=== PATIENT | male | born 1990 | race Caucasian/White ===

== ENCOUNTER 2017-05-24 19:12 | Inpatient (IN) | payer MEDICAID ==
[~2017-05-24] VITALS: Ht 182.9 cm; Wt 81.6 kg
--- NOTE | 2017-05-24 19:22 | NUR ---
PT AMBULATORY TO ER ER BED. C/O SUDDEN ONSET R EYE VISUAL LOSS THIS AFTERNOON WHILE AT CLASS. ALSO C/O R SIDED WEAKNESS AND PARASTHESIA. 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 PLACED ON MONITOR. STABLE VITALS NOTED. AWAITING MD BEDOYA.
--- NOTE | 2017-05-24 19:37 | NUR ---
DR FOWLER AT BEDSIDE FOR EVAL.
[2017-05-24 19:59] LABS: BASOPHILS % (AUTO) 0.3 % (0.0-2.0); EOSINOPHILS % (AUTO) 0.6 % (0.0-6.0); HEMATOCRIT 47 % (39-51); HEMOGLOBIN 16.1 g/dL (13.5-17.5); LYMPHOCYTES # (AUTO) 1.6 /CMM (0.8-4.8); LYMPHOCYTES % (AUTO) 22.4 % (20.0-44.0); MEAN CORPUSCULAR HEMOGLOBIN 31 PG (26.0-33.0); MEAN CORPUSCULAR HGB CONC 34 g/dl (31.0-36.0); MEAN CORPUSCULAR VOLUME 90 fL (80-96); MONOCYTES # (AUTO) 0.6 /CMM (0.1-1.30); MONOCYTES % (AUTO) 8.6 % (2.0-12.0); NEUTROPHILS # (AUTO) 4.7 /CMM (1.8-8.9); NEUTROPHILS % (AUTO) 68.1 % (43.0-81.0); PLATELET COUNT (AUTO) 266 /CMM (150-450); RDW COEFFICIENT OF VARIATION 12.2 (11.5-15.0); RED BLOOD CELL COUNT(AUTO) 5.25 MIL/uL (4.5-6.0); WHITE BLOOD COUNT (AUTO) 6.9 K/uL (4.3-11.0)
[2017-05-24 20:08] LABS: CREATININE 1.1 mg/dL (0.6-1.3); POTASSIUM 3.7 mmol/L (3.5-5.1)
[2017-05-24 20:14] LABS: INR 1.02 (0.87-1.13); PROTHROMBIN TIME 10.6 SECS (9.5-12.7)
--- NOTE | 2017-05-24 20:45 | NUR ---
REPORT GIVEN TO DEVON. PT AWAITING TRANSFER TO FLOOR.
[2017-05-24 21:30] VITALS: BP 139/78
--- NOTE | 2017-05-24 21:30 | NUR ---
MICROCOMPUTER TECHNICIAN INITIAL NOTES PT ARRIVED FROM ER VIA GURNEY, ABLE TO AMBULATE TO THE BED WITH A STEADY GAIT. NO SIGNS OF SOB OR DISTRESS, BREATHING EVENLY AND UNLABORED ON ROOM AIR. STROKE ASSESSMENT WAS PERFORMED AND DOCUMENTED. NURSING SWALLOW EVAL WAS COMPLETED, PT ATE WHAT FAMILY BROUGHT. ORDERS GIVEN TO BE CARRIED OUT. WILL CONTINUE TO MONITOR PT
[2017-05-24 23:48] LABS: ALBUMIN 4.2 g/dL (3.4-5.0); BILIRUBIN,DIRECT 0.1 mg/dL (0.0-0.2); BILIRUBIN,TOTAL 0.4 mg/dL (0.2-1.0); TOTAL PROTEIN, SERUM 7.7 g/dL (6.4-8.2)
[2017-05-24 23:49] LABS: THYROID STIMULATING HORMONE 1.193 uIU/mL (0.358-3.74)
[2017-05-25] VITALS: BP 139/69
[2017-05-25 04:00] VITALS: BP 113/65
[2017-05-25 04:26] LABS: BASOPHILS % (AUTO) 0.2 % (0.0-2.0); EOSINOPHILS # (AUTO) 0.1 /CMM (0.0-0.7); EOSINOPHILS % (AUTO) 0.8 % (0.0-6.0); HEMATOCRIT 43 % (39-51); HEMOGLOBIN 14.5 g/dL (13.5-17.5); LYMPHOCYTES # (AUTO) 2.8 /CMM (0.8-4.8); LYMPHOCYTES % (AUTO) 40.7 % (20.0-44.0); MEAN CORPUSCULAR HEMOGLOBIN 31 PG (26.0-33.0); MEAN CORPUSCULAR HGB CONC 34 g/dl (31.0-36.0); MEAN CORPUSCULAR VOLUME 90 fL (80-96); MONOCYTES # (AUTO) 0.7 /CMM (0.1-1.30); MONOCYTES % (AUTO) 10.4 % (2.0-12.0); NEUTROPHILS # (AUTO) 3.2 /CMM (1.8-8.9); NEUTROPHILS % (AUTO) 47.9 % (43.0-81.0); PLATELET COUNT (AUTO) 244 /CMM (150-450); RDW COEFFICIENT OF VARIATION 13.2 (11.5-15.0); RED BLOOD CELL COUNT(AUTO) 4.76 MIL/uL (4.5-6.0); WHITE BLOOD COUNT (AUTO) 6.8 K/uL (4.3-11.0)
[2017-05-25 04:45] LABS: INR 0.97 (0.87-1.13); PROTHROMBIN TIME 10.4 SECS (9.5-12.7)
[2017-05-25 04:47] LABS: ALBUMIN 3.5 g/dL (3.4-5.0); BILIRUBIN,TOTAL 0.3 mg/dL (0.2-1.0); CALCIUM, SERUM 9.3 mg/dL (8.5-10.1); CREATININE 0.9 mg/dL (0.6-1.3); POTASSIUM 3.8 mmol/L (3.5-5.1); TOTAL PROTEIN, SERUM 6.6 g/dL (6.4-8.2)
--- NOTE | 2017-05-25 07:35 | NUR ---
ANALYTICS ANALYST CLOSING NOTES PT IS IN BED A/O X4. NO SIGNS OF SOB OR DISTRESS. IV ACCESS INTACT AND PATENT, INFUSING WITH NS. NO ACUTE CHANGES THROUGHOUT MY SHIFT. BED IS IN LOW AND LOCKED POSITION, CALL LIGHT WITHIN REACH. WILL ENDORSE TO DAY SHIFT
--- NOTE | 2017-05-25 07:40 | NUR ---
FIRE LOSS PREVENTION ENGINEER NOTES PATIENT ALERT AND ORIENTED, DENIES PAIN OR HEADACHE AT THIS TIME, STATED HE FEELS BETTER, BREATHING EVEN AND UNLABORED, NO SOB, PIV PATENT AND FLUSHES WELL, IVF INFUSING AND TOLERATING WELL, NEED TO COLLECT URINE SAMPLE, NEEDS ATTENDED AND MET, CALL LIGHT WITHIN REACH, WILL CONTINUE TO MONITOR.
[2017-05-25 08:24] VITALS: BP 124/75
--- NOTE | 2017-05-25 09:30 | NUR ---
MARITIME OFFICER NOTES PATIENT SEEN BY DR. JEREZ AND DR. URIAS, RECEIVED NEW ORDERS FROM DR. JEREZ FOR MRI, MRA AND EEG. ORDER NOTED AND CARRIED OUT.
--- NOTE | 2017-05-25 10:00 | NUR ---
IMPLEMENTATION CONSULTANT NOTES PATIENT AWARE OF PROCEDURES, PATIENT BROUGHT DOWN TO RADIOLOGY FOR MRI AND MRA.
[2017-05-25 11:15] LABS: APPEARANCE,URINE CLEAR (CLEAR); BILIRUBIN,URINE NEGATIVE (NEGATIVE); BLOOD, URINE NEGATIVE Ery/uL (NEGATIVE); COLOR,URINE YELLOW (YELLOW); KETONES,URINE NEGATIVE (NEGATIVE); LEUKOCYTE ESTERASE ,URINE NEGATIVE (NEGATIVE); NITRITE, URINE NEGATIVE (NEGATIVE); PROTEIN,URINE NEGATIVE (NEGATIVE); UGLUCOSE NEGATIVE (NEGATIVE)
[2017-05-25 11:46] LABS: BACTERIA,URINE None seen /HPF (None Seen); RBC,URINE NONE SEEN /HPF (0-2); SQUAMOUS EPITHELIAL CELL,UR Few /HPF (None Seen); WBC,URINE 0-2 /HPF (0-3)
--- NOTE | 2017-05-25 12:00 | NUR ---
VERTICAL MILL OPERATOR NOTES PATIENT CAME BACK FROM MRA AND MRI, PLACED A CALL TO RADIOLOGY, VERIFIED WHAT TIME IS EEG GOING TO BE DONE, PER X-RAY TECH, IT WILL BE DONE IN THE AFTERNOON AFTER 5PM.
--- NOTE | 2017-05-25 15:00 | NUR ---
RN MS NOTES DR. URIAS AWARE OF MRI AND MRA RESULT, INFORMED HIM THAT EEG IS STILL PENDING.
[2017-05-25 16:00] VITALS: BP 120/81
--- NOTE | 2017-05-25 18:29 | NUR ---
RN MS NOTES PATIENT STILL WAITING FOR EEG TO BE DONE, INFORMED PATIENT HE HAS A DISCHARGE ORDER, IF CLEARED BY DR. JEREZ PATIENT CAN BE DISCHARGED HOME. F/U WITH RADIOLOGY AND STATED THE TECH WILL BE HERE.
--- NOTE | 2017-05-25 19:18 | NUR ---
MISSILE INSPECTOR PREFLIGHT NOTES EEG COMPLETED AT 1520, WAITING FOR RESULT AND DR. JEREZ'S CLEARANCE FOR DISCHARGE.
--- NOTE | 2017-05-25 19:45 | NUR ---
MS RN NOTE RECEIVED PATIENT FROM DAY SHIFT, PATIENT IS ALERT AND ORIENTEDX4, RESTING IN BED COMFORTABLY, STILL WAITING FOR DR. JEREZ'S EEG READING AND CLEARANCE FOR DC, INFORMED THE PATIENT WELL. IV ON RIGHT AC IS PATENT AND INTACT. SRX2, BED IN LOWP OSITION, CALL LIGHT WITHIN REACH, WILL CONTINUE TO MONITOR PATIENT.
[2017-05-25 19:58] VITALS: BP 121/70
--- NOTE | 2017-05-26 06:49 | NUR ---
MS RN NOTE NO ACUTE DISTRESS NOTED THROUGHOUT THE SHIFT, ALL DUE MEDS GIVEN. PATIENT IS RESTING IN BED COMFORTABLY. WILL ENDORSE TO DAY SHIFT NURSE FOR ARIANNA.
--- NOTE | 2017-05-26 07:23 | NUR ---
MS/RN OPENING NOTES PATIENT RECEIVED ASLEEP IN BED, EASILY AWAKENS. A/O X4, VERBALLY RESPONSIVE, DENIES PAIN OR DISCOMFORTS AT THIS TIME. ON ROOM AIR, BREATHING EVEN AND UNLABORED. IV ACCESS ON RAC INTACT, PATENT AND FLUSHES WELL, IVF OF NS @ 75ML/HR INFUSING WELL. CALL LIGHT WITHIN REACH. WILL CONTINUE TO MONITOR PT ACCORDINGLY
[2017-05-26 08:00] VITALS: BP 112/51
[2017-05-26 08:10] LABS: HOMOCYSTEINE, PLASMA 9.6 umol/L (0.0-15.0)
--- NOTE | 2017-05-26 11:03 | NUR ---
RN NOTES SEEN AND EVALUATED BY NEUROLOGIST DR JEREZ THIS MORNING AND CLEARED TO GO HOME.
--- NOTE | 2017-05-26 12:58 | NUR ---
RN DISCHARGED NOTES PATIENT DISCHARGED HOME IN STABLE CONDITION. HE LEFT UNIT AT 1300 AMBULATORY. V/S TAKEN AND RECORDED. SKIN IS INTACT. PATIENT HAS NO HOME MEDS OR PRESCRIPTIONS MEDS, SAME STATED THAT HE DOESN'T WANT TO TAKE ANY MEDICATION AT HOME. PNEUMO VACCINE REFUSED DESPITE ENCOURAGEMENT. HEALTH TEACHINGS GIVEN AND VERBALIZED UNDERSTANDING. MD AND CHARGE NURSE AWARE OF DISCHARGE.
[2017-05-27 15:09] LABS: *ANTITHROMBIN III AG 84 % (72-124); *DILUTE PROTHROMBIN TIME (dPT) 48.2 sec (0.0-55.0); *PTT-LA 44.2 sec (0.0-51.9); *THROMBIN TIME 16.6 sec (0.0-23.0); *dRVVT 41.3 sec (0.0-47.0); FACTOR VIII ACTIVITY 44 % (57-163); PROTEIN C ACTIVITY 112 % (73-180); PROTEIN S ACTIVITY 127 % (63-140)
[2017-05-27 16:10] LABS: *INTERPRETATION Comment: (.)
[2017-05-29 01:09] LABS: *CARD ANTI-CARDIOLIPIN AB IgG <9 GPL U/mL (0-14); *CARD ANTI-CARDIOLIPIN AB IgM 9 MPL U/mL (0-12)
[2017-05-30 17:10] LABS: *FACTOR II, DNA ANALYSIS Negative (.)
== END 2017-05-26 12:56 | disposition home or self-care (01) | DRG 53 ==
LOC: ER 19:16 → TELE 21:12 → MED 05-25 11:31
PROVIDERS: ADMIT Internal Medicine; ATTEND Internal Medicine
DX: G40.209 Localization-related (focal) (partial) symptomatic epilepsy and epileptic syndromes with complex partial seizures, not intractable, without status epilepticus (principal); F10.20 Alcohol dependence, uncomplicated; G43.809 Other migraine, not intractable, without status migrainosus; F17.200 Nicotine dependence, unspecified, uncomplicated; G44.89 Other headache syndrome; Z82.49 Family history of ischemic heart disease and other diseases of the circulatory system; Z82.3 Family history of stroke; F19.90 Other psychoactive substance use, unspecified, uncomplicated; Y90.9 Presence of alcohol in blood, level not specified
CPT/HCPCS: 36415; 70450-TC; 70544-TC; 70553-TC; 80048-TC; 80053-TC; 80061-TC; 80076-TC; 80305; 81000-TC; 81240; 82962-TC; 83090; 83880; 84443-TC; 84484-TC; 85025-TC; 85240; 85300; 85301; 85303; 85385-TC; 85613; 85652-TC; 85670; 85705; 85730-TC; 85732; 86147; 87081-TC; 92611-TC; 93307-TC; 93880-TC; 95819-TC; A4606; A9579; J1644; J7030; Z7610